=== PATIENT | male | born 1985 | race Caucasian/White ===

== ENCOUNTER 2017-03-30 10:02 | Emergency (ER) | payer BC ==
[~2017-03-30] VITALS: Ht 172.7 cm; Wt 108.9 kg
[2017-03-30 10:12] VITALS: BP 149/59
--- NOTE | 2017-03-30 10:12 | NUR ---
NOTIFIED OF RETURNING PT
--- NOTE | 2017-03-30 10:30 | NUR ---
Dr. Germain in patient's room for examination.
--- NOTE | 2017-03-30 10:40 | NUR ---
patient brought in via private vehicle for c/o chest pain after taking new prescriptions. patient was in er this am and discharged per physician's order. patient states " I started having chest pain after I took the steroid and inhaler." patient states left-sided chest pain when he inhales deeply. currently, no observations of cough, dyspnea, n/v/d. no headache, numbness, blurred vision noted. patient states slight dizziness with positional changes. patient resting in bed at this time. will continue to monitor.
--- NOTE | 2017-03-30 11:59 | NUR ---
pt denies qiu, cp, sob at this time encouraged to call insurance to find out who his pmd is and make appt physical Patient discharged with v/s stable. Written and verbal after care instructions given and explained. Patient alert, oriented and verbalized understanding of instructions. Ambulatory with steady gait. All questions addressed prior to discharge. ID band removed. Patient advised to follow up with PMD. Rx of prilosec given. Patient educated on indication of medication including possible reaction and side effects. Opportunity to ask questions provided and answered.
[2017-03-30 12:00] VITALS: BP 142/89
== END 2017-03-30 12:00 | disposition home or self-care (01) ==
LOC: MED 10:02
DX: R07.89 Other chest pain (principal); J40 Bronchitis, not specified as acute or chronic; K21.9 Gastro-esophageal reflux disease without esophagitis; Z87.891 Personal history of nicotine dependence
CPT/HCPCS: 36415; 84484; 93005; 99285

== ENCOUNTER 2017-04-04 07:05 | Emergency (ER) | payer BC ==
[~2017-04-04] VITALS: Ht 172.7 cm; Wt 104.3 kg
--- NOTE | 2017-04-04 07:05 | NUR ---
PT RADHA ALS. TAKEN TO BED 10
[2017-04-04 07:06] VITALS: BP 150/79
--- NOTE | 2017-04-04 07:10 | NUR ---
Note undone in EDM - 04/04/17 at 0725 by [email or web address] 32M BIBA FROM HOME C/O INTERMITTENT PRODUCTIVE COUGH WITH INTERMITTENT ANTERIOR MID CHEST WALL TIGHNESS PAIN X 2 WEEKS, WITH PAIN WORSENING X 0400 THIS MORNING. PT GIVEN ASPIRIN AND 2 DOSES OF NITRO IN THE FIELD. DENIES N/V/D; SKIN IS PINK/WARM/DRY; AAOX4 WITH EVEN AND STEADY GAIT; LUNGS CLEAR BL; PATIENT STATES PAIN OF 0/10 AT THIS TIME; PATIENT POSITIONED FOR COMFORT; HOB ELEVATED; BEDRAILS UP X2; BED DOWN. ER MADE AWARE OF PT STATUS.
--- NOTE | 2017-04-04 07:10 | NUR ---
Note undone in EDM - 04/04/17 at 0801 by [email or web address] 32M BIBA FROM HOME C/O INTERMITTENT NON PRODUCTIVE COUGH WITH INTERMITTENT ANTERIOR MID CHEST WALL TIGHNESS PAIN X 2 WEEKS, WITH PAIN WORSENING X 0400 THIS MORNING. PT GIVEN ASPIRIN AND 2 DOSES OF NITRO IN THE FIELD. DENIES N/V/D; SKIN IS PINK/WARM/DRY; AAOX4 WITH EVEN AND STEADY GAIT; LUNGS CLEAR BL; PATIENT STATES PAIN OF 0/10 AT THIS TIME; PATIENT POSITIONED FOR COMFORT; HOB ELEVATED; BEDRAILS UP X2; BED DOWN. ER MADE AWARE OF PT STATUS.
--- NOTE | 2017-04-04 07:10 | NUR ---
32M BIBA FROM HOME C/O INTERMITTENT NON PRODUCTIVE COUGH WITH INTERMITTENT ANTERIOR MID CHEST WALL TIGHNESS PAIN X 2 WEEKS, WITH PAIN WORSENING X 0400 THIS MORNING. PT GIVEN ASPIRIN AND 2 DOSES OF NITRO IN THE FIELD. DENIES N/V/D; SKIN IS PINK/WARM/DRY; AAOX4 WITH EVEN AND STEADY GAIT; LUNGS CLEAR BL; PATIENT STATES PAIN OF 8/10 AT THIS TIME; PATIENT POSITIONED FOR COMFORT; HOB ELEVATED; BEDRAILS UP X2; BED DOWN. ER MD MADE AWARE OF PT STATUS.
--- NOTE | 2017-04-04 07:24 | NUR ---
Patient being evaluated by DR CAPONE at bedside.
--- NOTE | 2017-04-04 07:28 | NUR ---
MOTHER AT BEDSIDE.
--- NOTE | 2017-04-04 07:46 | NUR ---
X RAY AT BEDSIDE.
--- NOTE | 2017-04-04 08:00 | NUR ---
LAB AT BEDSIDE.
[2017-04-04 08:14] LABS: HEMATOCRIT 51.8 % (36-52); HEMOGLOBIN 17.1 g/dL (12.0-18.0); MEAN CORPUSCULAR HEMOGLOBIN 28 pg (27-31); MEAN CORPUSCULAR HGB CONC 33 g/dL (33-37); MEAN CORPUSCULAR VOLUME 86 fL (80-94); PLATELET COUNT (AUTO) 234 K/uL (140-450); RED BLOOD CELL COUNT(AUTO) 6.05 MIL/uL (4.20-6.10); RED CELL DISTRIBUTION WIDTH 11.9 % (11.6-13.7); WHITE BLOOD COUNT (AUTO) 10.6 K/uL (4.8-10.8)
[2017-04-04 08:22] LABS: ANION GAP 16.3 (8-16); CARBON DIOXIDE 23.3 mmol/L (21-32); POTASSIUM 3.6 mmol/L (3.5-5.1)
[2017-04-04 08:26] LABS: EOSINOPHILS % (MANUAL) 4 % (0-4); LYMPHOCYTES % (MANUAL) 13 % (20-46); MONOCYTES % (MANUAL) 5 % (5-12)
[2017-04-04 08:27] LABS: ALBUMIN 3.8 g/dL (3.4-5.0); TOTAL BILIRUBIN 0.9 mg/dL (0.0-1.0)
--- NOTE | 2017-04-04 08:40 | NUR ---
Note undone in EDM - 04/04/17 at 0856 by [email or web address] Patient discharged with BP132/71 ; ADAM BHAKTA AT THIS TIME; MD JOSEPH AWAR. Written and verbal after care instructions given and explained. Patient alert, oriented and verbalized understanding of instructions. Ambulatory with steady gait. All questions addressed prior to discharge. ID band removed. PatientE advised to follow up with PMD. Rx of VENTOLIN HFA & IBUPROFEN given. Patient educated on indication of medication including possible reaction and side effects. Opportunity to ask questions provided and answered.
--- NOTE | 2017-04-04 08:44 | NUR ---
Patient being reevaluated by DR CAPONE at bedside.
[2017-04-04 08:48] VITALS: BP 132/71
--- NOTE | 2017-04-04 08:48 | NUR ---
Patient discharged with BP132/71 ; DENIES BHAKTA AT THIS TIME; MADE AWAR. Written and verbal after care instructions given and explained. Patient alert, oriented and verbalized understanding of instructions. Ambulatory with steady gait. All questions addressed prior to discharge. ID band removed. PatientE advised to follow up with PMD. Rx of VENTOLIN HFA & IBUPROFEN given. Patient educated on indication of medication including possible reaction and side effects. Opportunity to ask questions provided and answered.
== END 2017-04-04 08:48 | disposition home or self-care (01) ==
LOC: MED 07:05
DX: R09.1 Pleurisy (principal); J40 Bronchitis, not specified as acute or chronic; Z87.891 Personal history of nicotine dependence
CPT/HCPCS: 36415; 71045; 80053; 83690; 83880; 84484; 85025; 99285; Q0092